=== PATIENT | male | born 1960 | race Caucasian/White ===

== ENCOUNTER → 2020-02-02 16:45 | Outpatient (CLI) | payer OTHER, SELFPAY ==
--- NOTE | 2020-02-02 16:58 | EKG12_ITS ---
Test Reason : PRE-OP Blood Pressure : / mmHG Vent. Rate : 071 BPM Atrial Rate : 071 BPM P-R Int : 166 ms QRS Dur : 092 ms QT Int : 402 ms P-R-T Axes : 059 -25 044 degrees QTc Int : 436 ms Normal sinus rhythm Q waves in III and aVF could be related to body habatis. Abnormal ECG Reconfirmed by ELIAS VERDUGO, ROLY ([id number]), film editor ARNOLD ARSHAD ([id number]) on 02/05/2020 12:45:20 PM Referred By: René Valdez Confirmed By:HAIDER GRIFFIN MD
[2020-02-02 17:08] LABS: Hematocrit 48.2 % (40-54); Hemoglobin 16.4 g/dL (13.0-16.5); Mean Corpuscular Hgb 30.5 pg (27.0-32.0); Mean Corpuscular Volume 89.8 fL (80-94); Mean Platelet Vol. 8.6 fl (6.2-12.0); Platelet Count 277 K/mm3 (150-450); RBC Distribution Width CV 12.6 % (11.6-14.6); RBC Distribution Width SD 41.4 fl (35.1-43.9); Red Blood Count 5.37 M/mm3 (4.6-6.2); White Blood Count 9.3 K/mm3 (4.4-11.0)
[2020-02-02 17:52] LABS: Anion Gap 5 (5-15); BUN 20 mg/dL (7-18); BUN/Creat Ratio 18.2 RATIO (10-20); Chloride 106 mmol/L (98-107); EST Glomerular Filtration Rate 73 mL/min (>60); Est Glom Filt Rate - Afr Amer 88 mL/min (>60); Glucose 86 mg/dL (74-106); Potassium 3.6 mmol/L (3.5-5.1); Sodium Level 140 mmol/L (136-145)
== END ==
PROVIDERS: PCP Family Medicine; Referring Provider Urology; Visit Provider Urology
DX: I10 Essential (primary) hypertension (principal)
CPT/HCPCS: 36415; 80048; 85027; 93005

== ENCOUNTER → 2024-07-24 | Outpatient (CLI) | payer OTHER, SELFPAY ==
[2024-07-24 16:10] LABS: Magnesium 2.2 mg/dL (1.5-2.2); Vitamin B12 611 pg/mL (180-914)
[2024-07-30 01:07] LABS: Folate, RBC (Hct) Test 51.9 % (37.5-51.0); Folates, RBC Test 879 ng/mL (>498); Vitamin B1, Thiamine 135.2 nmol/L (66.5-200.0)
== END | disposition home or self-care (01) ==
LOC: MTLAB 11:43
PROVIDERS: PCP Family Medicine
DX: G62.9 Polyneuropathy, unspecified (principal)
CPT/HCPCS: 36415; 82607; 82652; 82747; 83735; 84425; 85014

== ENCOUNTER → 2024-08-12 | Outpatient (CLI) | payer OTHER, SELFPAY ==
--- NOTE | 2024-08-12 13:25 | NEURO_ITS ---
NCS and/or EMG Patient Report Ordering Doctor: Linnea Byrne DATE OF SERVICE: 08/12/24 Ravin presents with complaints of intermittent numbness in both arms. He also notes numbness persistently in digits 1 through 3 of the right hand. Electrodiagnostic findings: Right median motor nerve demonstrates prolonged l atency with reduced amplitude. Proximal response and therefore conduction velocity could not be obtained. Left median motor nerve demonstrates prolonged latency with normal amplitude and reduced conduction velocity. Ulnar motor response within normal limits bilaterally. Prolonged right ulnar, left ulnar and left median F?waves. Absent median sensory latencies at the wrist. Mildly prolonged ulnar sensory latency bilaterally. Normal radial sensory responses. Needle EMG testing was performed upper limbs. All muscles tested showed no evidence of denervation with normal motor unit action potentials. Electrodiagnostic impression: This an abnormal study in the upper limbs. 1. Electrodiagnostic findings suggestive of bilateral median mononeuropathy. This is consistent with a moderate to advanced bilateral carpal tunnel syndrome Multi Select Codes Neurology Neurology Interp Codes: 55877-24 Musc test done w/n test comp (interp) (2) and 07625-65 Nrv cndj test 9-10 studies (interp)
== END | disposition home or self-care (01) ==
LOC: PSN 11:48
PROVIDERS: PCP Family Medicine
DX: G62.9 Polyneuropathy, unspecified (principal)
CPT/HCPCS: 95886; 95911

== ENCOUNTER → 2024-08-18 | Outpatient (CLI) | payer OTHER, SELFPAY ==
--- NOTE | 2024-08-18 11:17 | NEURO ---
NCS and/or EMG Patient Report Ordering Doctor: Linnea Byrne DATE OF SERVICE: 08/18/24 Clinical Summary: 64 year old male patient presenting for evaluation of polyneuropathy. Nerve Conduction Studies Summary: Nerve conduction studies of the left lower extremity were within normal ranges. Needle Examination Summary: Needle examination of select muscles of the left lower extremity was normal. Impression: This is a normal study. There is no electrodiagnostic evidence of a large-fiberal peripheral neuropathy or a left lumbosacral radiculopathy. Multi Select Codes Neurology Neurology Interp Codes: 62577-36 Musc test done w/n test comp (interp) (1) and 54168-28 Nrv cndj tst 3-4 studies (interp)
== END | disposition home or self-care (01) ==
LOC: PSN 09:42
PROVIDERS: PCP Family Medicine
DX: G62.9 Polyneuropathy, unspecified (principal)
CPT/HCPCS: 95886; 95908

== ENCOUNTER → 2024-12-08 | Outpatient (CLI) | payer OTHER, SELFPAY ==
--- NOTE | 2024-12-08 10:21 | EKG12_ITS ---
Test Reason : PRE OP Blood Pressure : */* mmHG Vent. Rate : 76 BPM Atrial Rate : 76 BPM P-R Int : 142 ms QRS Dur : 78 ms QT Int : 364 ms P-R-T Axes : -6 -35 38 degrees QTcB Int : 409 ms Normal sinus rhythm Left axis deviation Abnormal ECG Confirmed by Mark Solomon ([id number]), tape editor MARINO HARRIS ([id number]) on 12/09/2024 11:23:23 AM Referred By: Jaret Parker Confirmed By: Mark Solomon
--- NOTE | 2024-12-08 10:21 | EKG12_ITS ---
Test Reason : PRE OP Blood Pressure : */* mmHG Vent. Rate : 76 BPM Atrial Rate : 76 BPM P-R Int : 142 ms QRS Dur : 78 ms QT Int : 364 ms P-R-T Axes : -6 -35 38 degrees QTcB Int : 409 ms Normal sinus rhythm Left axis deviation Abnormal ECG Confirmed by Mark Solomon ([id number]), web editor MARINO HARRIS ([id number]) on 12/09/2024 11:23:23 AM Referred By: Jaret Parker Confirmed By: Mark Solomon
[2024-12-08 10:32] LABS: Hematocrit 47.2 % (40-54); Hemoglobin 16.1 g/dL (13.0-16.5); Mean Corp Hgb Conc 34.1 g/dL (32-36); Mean Corpuscular Volume 90.4 fL (80-94); Mean Platelet Vol. 8.8 fl (6.2-12.0); Platelet Count 254 K/mm3 (150-450); RBC Distribution Width CV 12.9 % (11.6-14.6); RBC Distribution Width SD 42.5 fl (35.1-43.9); Red Blood Count 5.22 M/mm3 (4.6-6.2); White Blood Count 7.2 K/mm3 (4.4-11.0)
[2024-12-08 11:18] LABS: Anion Gap 10 (5-15); BUN 18 mg/dL (4-19); BUN/Creat Ratio 17.9 RATIO (10-20); Calcium,Total 9.1 mg/dL (7.6-11.0); Carbon Dioxide 25.3 mmol/L (21.0-32.0); Chloride 105 mmol/L (98-108); Glucose 154 mg/dL (70-99); Potassium 3.6 mmol/L (3.3-5.1)
== END | disposition home or self-care (01) ==
PROVIDERS: PCP Family Medicine; Referring Provider Otolaryngology; Visit Provider Otolaryngology
DX: Z01.812 Encounter for preprocedural laboratory examination (principal)
CPT/HCPCS: 36415; 80048; 85027; 93005

== ENCOUNTER → 2025-01-05 | Outpatient (CLI) | payer OTHER, SELFPAY ==
--- NOTE | 2025-01-04 15:25 | LES_PTH ---
PATIENT: TONE KOHLI LOC: [facility] U#:[id number] AGE/SX: 64/M ROOM: RE01/05/[address]: Dr. Jaret Parker MD : 1960 BED: DIS: 01/05/2025 SPEC #: [id number] RECD: 01/05/25 16:47 STATUS: YAKOV REZachariah #: [id number] LESLIE: 01/04/25 15:[address]: Jaret Parker DEPT: SURGICAL PATHOLOGY RECD BY: Young Loving ENTERED: 01/06/25 10:33 SP TYPE: Lesion OTHR DR: Dr. Marcio Vera MD Tissues: A - Skin of nose, NOS Procedures: Surgery Specimen Level IV HEADER OPERATION: Excision intra nasal lesion left PRE-OP DIAGNOSIS: Neoplasm of uncertain behavior of other respiratory organs TISSUE SUBMITTED: A- Left nasal lesion MICROSCOPIC DIAGNOSIS A. 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 MICROSCOPIC DESCRIPTION Slides are reviewed. GROSS DESCRIPTION A. Received in formalin labeled with the patient's name and date of . Designated as left intranasal lesion are 2 undesignated, irregular portions of kang skin, 0.3 x 0.2 x 0.2 cm (inked green) and 0.8 x 0.6 x 0.5 cm (inked orange). The larger portion of skin is serially sectioned revealing kang-yellow to brown, gritty cut surfaces throughout. Entirely submitted in 1 cassette. HI 01/06/2025 CPT:93954
== END | disposition home or self-care (01) ==
LOC: LABSPEC 16:09
PROVIDERS: PCP Family Medicine; Referring Provider Otolaryngology; Visit Provider Otolaryngology
DX: D38.6 Neoplasm of uncertain behavior of respiratory organ, unspecified (principal)
CPT/HCPCS: 88305